=== PATIENT | male | born 1940 | race Caucasian/White ===

== ENCOUNTER 2020-08-18 07:34 | Day surgery (SDC) | payer MEDICARE ==
[2020-08-15 11:04] VITALS: BMI 27.4
[2020-08-18 08:24] VITALS: BP 129/93; TEMP 97.9
--- NOTE | 2020-08-18 10:18 | CT ---
Exam: Head CT without contrast HISTORY: Gait disturbance. Patient is here for long-term volume tap. COMPARISON: 05/06/2014 FINDINGS: Hemorrhage: No intraparenchymal hemorrhage or extra-axial hematoma. Brain parenchyma: Cortical dozier-white matter differentiation is preserved. No mass effect or midline shift. Basilar cisterns are patent.Minimal chronic small vessel ischemic changes of white matter Ventricular system: Ventricles and sulci are patent and symmetric. Calvarium: Intact. Sinuses and mastoid air cells: Adequate aeration. IMPRESSION: No acute intracranial process.
--- NOTE | 2020-08-18 10:19 | RAD ---
Exam: Lumbar puncture HISTORY: High volume tap. Acquired cerebral ventriculomegaly. Abnormal gait. FINDINGS: Three views lumbar spine demonstrate 5 lumbar type vertebra. Moderate degenerative changes of the lum bar spine with loss of disc space height, osteophyte formation. Atherosclerosis of the aorta. Hypertrophic changes of posterior elements at L4-L5 and L5-S1. Successful large volume tap. A total of 32 mL of clear CSF was removed. No immediate or postprocedure complications. TECHNIQUE: Consent obtained to perform a lumbar puncture for large volume tap. The L3-L4 level was deemed approp riate. Skin was prepped and draped in a sterile fashion. 1% lidocaine, buffered with sodium bicarbonate was used for local anesthesia. Under fluoroscopic guidance, 22-gauge spinal needles advan dean into the CSF space. Prompt flow of clear CSF to the hub of the needle. Via a short tubing catheter, total of 32 mL of clear CSF was collected. Patient tolerated the procedure well. No immedia te or postprocedure complications. IMPRESSION: Successful lumbar puncture. Transcribed Date/Time: 08/18/2020 10:24 AM
== END 2020-08-18 11:00 | disposition home or self-care (01) ==
LOC: RAD 07:34
PROVIDERS: ATTEND Neurological Surgery
PROC: 00JU3ZZ Inspection of Spinal Canal, Percutaneous Approach (ICD-10-PCS; principal; 2020-08-18)
DX: G91.9 Hydrocephalus, unspecified (principal); I70.0 Atherosclerosis of aorta; I10 Essential (primary) hypertension; K58.9 Irritable bowel syndrome, unspecified
CPT/HCPCS: 62270; 70450

== ENCOUNTER 2020-09-19 07:04 | Outpatient (CLI) | payer MEDICARE ==
[2020-09-19 17:31] LABS: Hemoglobin 13.8 g/dL (14.0-18.0); Mean Corpuscular HGB CONC 33.2 G/DL (32.0-36.0); Mean Corpuscular Hemoglobin 29.4 PG (27.0-33.0); Mean Corpuscular Volume 88.5 fl (80.0-100.0); Mean Platelet Volume 9.8 fl (7.4-10.4); Platelet Count 122 10x3/uL (130-400); RBC Distribution Width 11.9 % (11.5-14.5); White Blood Cell (WBC) Count 8.4 10x3/uL (4.5-11.0)
[2020-09-19 17:53] LABS: Anion Gap 16 mmol/L (10-20); BUN (Urea Nitrogen) 19 mg/dL (8.4-25.7); Calc. Creatinine Clearance 0 mL/min (70-130); Carbon Dioxide 27 mmol/L (23-31); Chloride 97 mmol/L (98-107); Glucose 69 mg/dL (83-110); Potassium 4.2 mmol/L (3.5-5.1); Sodium 136 mmol/L (136-145)
[2020-09-20 03:27] LABS: SARS-CoV-2 MS2 Positive; SARS-CoV-2 N Gene Negative; SARS-CoV-2 S Gene Negative; SARS-CoV-2 by NAA Not Detected (NotDetected); SARS-CoV-2 orf1ab Negative
--- NOTE | 2020-09-22 16:11 | EKG ---
Test Reason : PREOP Blood Pressure : / mmHG Vent. Rate : 078 BPM Atrial Rate : 078 BPM P-R Int : 144 ms QRS Dur : 090 ms QT Int : 376 ms P-R-T Axes : 050 057 065 degrees QTc Int : 428 ms Sinus rhythm with marked sinus arrhythmia with occasional Premature ventricular complexes and PAC's Abnormal No previous ECGs available Confirmed by DR. Enoch DANIELSON ([id number]) on 09/22/2020 4:11:40 PM Referred By: ARCELIA Confirmed By:DR. Enoch DANIELSON
== END 2020-09-19 07:05 | disposition home or self-care (01) ==
LOC: LABBT 07:04
PROVIDERS: ATTEND Neurological Surgery
DX: Z01.818 Encounter for other preprocedural examination (principal); Z20.828 Contact with and (suspected) exposure to other viral communicable diseases; G91.2 (Idiopathic) normal pressure hydrocephalus
CPT/HCPCS: 80048; 85027; U0003; 87635; 93005; 93010

== ENCOUNTER 2020-09-19 13:30 | Inpatient (IN) | payer MEDICARE ==
[2020-09-24] MEDS ORDERED: Lidocaine 0.5%/Epinephrine 1:200,000 50 ml Vial ONE (08:31)
[2020-09-24] MEDS ORDERED: PHENYLEPHRINE-NS 100 MCG/ML 10 ML SYRINGE ONE (08:43)
[2020-09-24] MEDS ORDERED: Rocuronium Bromide 10 MG/ML (10ML VIAL) ONE (08:43)
[2020-09-24] MEDS ORDERED: Dexamethasone 20 MG/5 ML VIAL ONE (08:43)
[2020-09-24] MEDS ORDERED: Ondansetron PF 4 MG/2 ML Vial ONE (08:43)
[2020-09-24] MEDS ORDERED: Lidocaine 1% PF 5 ML VIAL ONE (08:43)
[2020-09-24] MEDS ORDERED: PROPOFOL 200 MG/20 ML VIAL ONE (08:43)
--- NOTE | 2020-09-24 08:47 | HP ---
HISTORY OF PRESENT ILLNESS: Mr. Rivero was referred to us for evaluation of possible normal-pressure hydrocephalus. Most of the history provided by ex- on the phone. She reports he developed a shuffling sort of gait over the last several months, and at this point, has a great deal of difficulty ambulating. He reportedly has good strength on examination according to the primary care physician, though walking is a difficult task. He does have urinary incontinence troubles as well. MRI performed at [facility] reveals diffuse ventriculomegaly and perhaps some indication of surrounding transependymal flow. High-volume lumbar puncture resulted in short-lived, but clinically significant functional improvement and hopes to discuss permanent shunt placement. PAST MEDICAL HISTORY: Significant for glaucoma, arthritis, prostate cancer, hypertension. PAST SURGICAL HISTORY: Rotator cuff repair, unspecified laterality; and hemorrhoidectomy. CURRENT MEDICATIONS: 1. Lisinopril. 2. Hydrochlorothiazide. 3. Lovastatin. 4. Tamsulosin. 5. Vitamin D. ALLERGIES: NO KNOWN DRUG ALLERGIES. PHYSICAL EXAMINATION: Exam is deferred for telehealth visit. ASSESSMENT: Normal-pressure hydrocephalus. PLAN: Dr. Balderas met with the patient, reviewed imaging, and advocated for ENVIRONMENTAL PROJECT MANAGER shunt placement. He explained to the patient risks, benefits, and alternatives to the procedure. The patient expressed understanding and elected to move forward with surgery as discussed. I do believe the patient is mentally competent and capable of making medical decisions for himself. We will move forward with surgery as planned. Job ID: [id number]
[2020-09-24] MEDS ORDERED: Fentanyl 100 MCG/2 ML VIAL ONE (08:53)
[2020-09-24] MEDS ORDERED: Morphine Sulfate 2 MG/ML SYRINGE SLOW IVP PRN (09:45)
[2020-09-24] MEDS ORDERED: HYDROmorphone 2 MG/ML VIAL SLOW IVP PRN (09:45)
[2020-09-24] MEDS ORDERED: Promethazine HCl 25 MG/ML VIAL SLOW IVP PRN (09:45)
[2020-09-24] MEDS ORDERED: Promethazine HCl 25 MG/ML VIAL IM PRN (09:45)
[2020-09-24] MEDS ORDERED: PACU-Morphine 4MG/ML VIAL SLOW IVP PRN (09:45)
[2020-09-24] MEDS ORDERED: Ondansetron HCl/PF 4 MG/2 ML Vial IVP PRN (09:45)
[2020-09-24] MEDS ORDERED: SUGAMMADEX SODIUM 200 MG/2 ML VIAL ONE (09:47)
[2020-09-24] MEDS ORDERED: Morphine 2 MG/ML VIAL SLOW IVP PRN (10:05)
[2020-09-24] MEDS ORDERED: Labetalol HCl 100 MG/20 ML VIAL SLOW IVP PRN (10:05)
[2020-09-24] MEDS ORDERED: hydrALAZINE 20 MG/ML VIAL SLOW IVP PRN (10:05)
[2020-09-24] MEDS ORDERED: diphenhydrAMINE 50 MG/ML VIAL IVP PRN (10:05)
[2020-09-24] MEDS ORDERED: Ondansetron PF 4 MG/2 ML Vial IVP PRN (10:05)
--- NOTE | 2020-09-24 10:42 | OP ---
DATE OF PROCEDURE: 09/24/2020 TOP STITCHER: Adama Gan PA-C INDICATION: Prevent neurologic decline. DIAGNOSIS: Normal-pressure hydrocephalus. PROCEDURE: Placement of ventriculoperitoneal shunt. ANESTHESIA: General. DESCRIPTION OF PROCEDURE: The patient was brought into the operating room and placed under general anesthesia. He was placed on table in supine position. Two incisions were planned, one linear incision just beneath the xiphoid process. A second was a curvilinear incision along the occiput on the right side. After prepping and draping both areas, both incisions were created. A shunt passer trocar was used to pass the peritoneal shunt tubing from the occipital incision into the subxiphoid incision. A amaury hole was then placed within the occiput. A 6-cm ventricular catheter was carefully placed with immediate egress of clear spinal fluid. It was connected to the shunt valve peritoneal assembly. It was secured using multiple suture. We then redirected our attention to the subxiphoid incision, where as able to gain access to the peritoneal space and the peritoneal portion of the catheter was placed within the peritoneal space. Both incisions were closed in anatomic layers, and the procedure came to an end without any known complication. Job ID: [id number]
[2020-09-24 13:13] VITALS: BMI 26.2
[2020-09-24] MEDS ORDERED: Mirtazapine 15 MG TAB PO SCH (21:00)
[2020-09-24] MEDS ORDERED: Atorvastatin Calcium 10 MG TAB PO SCH (21:00)
[2020-09-24] MEDS: CEFAZOLIN 2 GM in Premix Bag 1 BAG IVPB SCH (21:03)
[2020-09-24] MEDS: Famotidine/PF 20 mg/2ml Vial SLOW IVP SCH (21:03)
[2020-09-25] MEDS: Sodium Chloride 0.9% 1,000 ML IV SCH ×2 (01:00→05:53)
[2020-09-25] MEDS: CEFAZOLIN 2 GM in Premix Bag 1 BAG IVPB SCH ×2 (05:47→09:12)
[2020-09-25] MEDS ORDERED: Ergocalciferol 1.25 MG(50,000 UNITS) CAP PO SCH (09:00)
[2020-09-25] MEDS ORDERED: Hydrochlorothiazide 25 MG TAB PO SCH (09:00)
[2020-09-25] MEDS ORDERED: Lisinopril 20 MG TAB PO SCH (09:00)
[2020-09-25] MEDS ORDERED: Tamsulosin HCl 0.4 MG CAP PO SCH (09:00)
[2020-09-25] MEDS: Famotidine/PF 20 mg/2ml Vial SLOW IVP SCH (09:12)
[2020-09-25 09:58] VITALS: TEMP 98.4
[2020-09-25 10:19] VITALS: BP 149/75
--- NOTE | 2020-09-26 12:22 | DIS ---
DATE OF ADMISSION: 09/24/2020 DATE OF DISCHARGE: 09/25/2020 Mr. Rivero is an 80-year-old man, admitted to [facility] by Dr. Ryan Balderas on September 24, 2020 ADMISSION DIAGNOSIS: Status post VARNISH BLENDER shunt placement. DISCHARGE DIAGNOSIS: Status post VARNISH BLENDER shunt placement. HOSPITAL COURSE: His hospital course was uncomplicated. Consultations were ordered to Physical Therapy. He overall tolerated one night in the ICU quite well with no significant pain issues. He was ultimately discharged home in excellent condition with 2 week followup planned in the outpatient setting. Job ID: [id number]
== END 2020-09-25 13:05 | disposition home or self-care (01) | DRG 33 ==
LOC: SURG A 09-24 07:37 → CCU 09-24 12:54
PROVIDERS: ADMIT Neurological Surgery; ATTEND Neurological Surgery
PROC: 00163J6 Bypass Cerebral Ventricle to Peritoneal Cavity with Synthetic Substitute, Percutaneous Approach (ICD-10-PCS; principal; 2020-09-24)
DX: G91.2 (Idiopathic) normal pressure hydrocephalus (principal); M19.90 Unspecified osteoarthritis, unspecified site; R26.9 Unspecified abnormalities of gait and mobility; I10 Essential (primary) hypertension; Z85.46 Personal history of malignant neoplasm of prostate; Z79.899 Other long term (current) drug therapy
CPT/HCPCS: J0690; J1100; J2001; J2405; J2704; J3010; J3490; S0028

== ENCOUNTER 2021-05-27 10:22 | Outpatient (CLI) | payer MEDICARE | END 2021-05-27 10:23 | disposition home or self-care (01) | LOC: BICMAMMO 10:22 | PROVIDERS: ATTEND Family Medicine | DX: Z13.820 Encounter for screening for osteoporosis (principal); M85.851 Other specified disorders of bone density and structure, right thigh; M85.852 Other specified disorders of bone density and structure, left thigh; Z12.5 Encounter for screening for malignant neoplasm of prostate | CPT/HCPCS: 77080; 80061; 82306; G0103; 36415; 80053; 84443; 85025 ==

== ENCOUNTER 2022-02-09 16:47 | Inpatient (IN) | payer MEDICARE ==
[2022-02-09 18:13] LABS: #Lymphocytes 0.7 thou/uL (1.20-3.40); #Monocytes 0.8 thou/uL (0.11-0.59); #Neutrophils 10.2 thou/uL (1.40-6.50); %Basophils 0.4 % (0.0-1.0); %Eosinophils 0.1 % (0.0-10.0); %Lymphocytes 5.6 % (21.0-51.0); %Monocytes 6.7 % (0.0-10.0); %Neutrophils 87.1 % (42.0-75.0); Hemoglobin 13.3 g/dL (14.0-18.0); Mean Corpuscular HGB CONC 34.9 g/dL (32.0-36.0); Mean Corpuscular Hemoglobin 31.5 pg (27.0-31.0); Mean Corpuscular Volume 90.3 fL (78.0-98.0); Mean Platelet Volume 9.1 fL (7.4-10.4); Platelet Count 77 thou/uL (130-400); RBC Distribution Width 12.8 % (11.5-14.5); Red Blood Cell (RBC) Count 4.23 mill/uL (4.70-6.10); White Blood Cell (WBC) Count 11.8 thou/uL (4.8-10.8)
[2022-02-09 18:14] LABS: Bacteria/HPF 3+ HPF (None Seen); Bilirubin Negative (Negative); Blood, Urine 3+ (Negative); Clarity Turbid (Clear); Glucose, Urine (Dipstick) Normal (Negative); Ketone, Urine 20 mg/dL (Negative); Leukocyte Negative Leu/uL (Negative); Nitrite Negative (Negative); Protein, Urine (Dipstick) 70 mg/dL (Neg-Trace); RBC/HPF 0-3 HPF (0-3); Specific Gravity, Urine 1.015 (1.002-1.036); Squamous Epithelial 0-3 HPF (0-3); Urobilinogen Normal mg/dL (Less than 2); pH, Urine 5.5 (5.0-9.0)
[2022-02-09 18:36] LABS: ALT (SGPT) Less than 7 U/L (8-55); AST (SGOT) 20 U/L (5-34); Albumin 4.2 g/dL (3.4-4.8); Alkaline Phosphatase 119 U/L (40-110); Anion Gap 29 mmol/L (10-20); BUN (Urea Nitrogen) 97 mg/dL (8.4-25.7); Bilirubin, Total 0.7 mg/dL (0.2-1.2); CK (CPK) 683 U/L (30-200); Calc. Creatinine Clearance 0 mL/min (70-130); Calcium 9.4 mg/dL (7.8-10.44); Carbon Dioxide 16 mmol/L (23-31); Chloride 102 mmol/L (98-107); Globulin 2.4 g/dL (2.4-3.5); Glucose 67 mg/dL (83-110); Potassium 4.1 mmol/L (3.5-5.1); Protein, Total 6.6 g/dL (5.8-8.1); Sodium 143 mmol/L (136-145)
[2022-02-09] MEDS ORDERED: cefTRIAXone\\ROCEPHIN 2 GM VIAL ONE (19:11)
[2022-02-09] MEDS ORDERED: hydrALAZINE 20 MG/ML VIAL SLOW IVP PRN (19:38)
[2022-02-09] MEDS ORDERED: Sodium Chloride 0.9% 500 ML IV SCH (19:45)
[2022-02-09] MEDS: Mirtazapine 15 MG TAB PO SCH (22:11)
[2022-02-09] MEDS: Sodium Chloride 0.9% 1,000 ML IV SCH (22:13)
[2022-02-09 22:54] VITALS: BMI 22.6
[2022-02-10] MEDS: Acetaminophen 500 MG TAB PO SCH ×5 (02:21→23:37)
[2022-02-10 04:10] LABS: Bacteria/HPF None Seen HPF (None Seen); Bilirubin Negative (Negative); Blood, Urine 2+ (Negative); Clarity Clear (Clear); Glucose, Urine (Dipstick) Normal (Negative); Ketone, Urine 40 mg/dL (Negative); Leukocyte Negative Leu/uL (Negative); Nitrite Negative (Negative); Protein, Urine (Dipstick) 50 mg/dL (Neg-Trace); RBC/HPF 0-3 HPF (0-3); Specific Gravity, Urine 1.013 (1.002-1.036); Squamous Epithelial 0-3 HPF (0-3); Urobilinogen Normal mg/dL (Less than 2); WBC/HPF 0-3 HPF (0-3); pH, Urine 5.5 (5.0-9.0)
[2022-02-10 04:11] LABS: Urine Culture Reflex No No
[2022-02-10] MEDS: Sodium Chloride 0.9% 1,000 ML IV SCH ×2 (06:09→12:30)
[2022-02-10 06:21] LABS: #Lymphocytes 0.5 thou/uL (1.20-3.40); #Monocytes 0.5 thou/uL (0.11-0.59); #Neutrophils 7.5 thou/uL (1.40-6.50); %Eosinophils 0.1 % (0.0-10.0); %Lymphocytes 6.1 % (21.0-51.0); %Monocytes 5.7 % (0.0-10.0); Hemoglobin 11.6 g/dL (14.0-18.0); Mean Corpuscular HGB CONC 34.1 g/dL (32.0-36.0); Mean Corpuscular Hemoglobin 31.1 pg (27.0-31.0); Mean Corpuscular Volume 91.5 fL (78.0-98.0); Mean Platelet Volume 7.7 fL (7.4-10.4); Platelet Count 55 thou/uL (130-400); RBC Distribution Width 12.3 % (11.5-14.5); Red Blood Cell (RBC) Count 3.74 mill/uL (4.70-6.10); White Blood Cell (WBC) Count 8.5 thou/uL (4.8-10.8)
[2022-02-10 06:25] LABS: INR-International Normal Ratio 1.2; PTT 32.4 sec (22.9-36.1); Prothrombin Time 15.6 sec (12.0-14.7)
[2022-02-10 06:35] LABS: Anion Gap 24 mmol/L (10-20); BUN (Urea Nitrogen) 82 mg/dL (8.4-25.7); CK (CPK) 784 U/L (30-200); Calc. Creatinine Clearance 12 mL/min (70-130); Calcium 8.4 mg/dL (7.8-10.44); Carbon Dioxide 15 mmol/L (23-31); Chloride 109 mmol/L (98-107); Magnesium 2.4 mg/dL (1.6-2.6); Phosphorus 5.4 mg/dL (2.3-4.7); Sodium 144 mmol/L (136-145)
[2022-02-10 06:39] LABS: Glucose 57 mg/dL (83-110)
[2022-02-10] MEDS: Tamsulosin HCl 0.4 MG CAP PO SCH (08:18)
[2022-02-10] MEDS ORDERED: Carbidopa/Levodopa 25-100 mg Tablet PO SCH (09:00)
[2022-02-10 09:39] LABS: SARS-CoV-2 NAA Rapid Test Not Detected (NotDetected)
[2022-02-10] MEDS: Amantadine HCl 100 mg Capsule PO SCH (10:05)
[2022-02-10] MEDS: Atorvastatin Calcium 10 MG TAB PO SCH (18:01)
[2022-02-10] MEDS ORDERED: Sodium Bicarbonate 150 MEQ in Dextrose 5% in Water 1,000 ML IV SCH (18:30)
[2022-02-10] MEDS ORDERED: cefTRIAXone\\ROCEPHIN 2 GM in Sodium Chloride 0.9% 100 ML IVPB SCH (20:00)
[2022-02-10] MEDS: Mirtazapine 15 MG TAB PO SCH (20:58)
[2022-02-10 22:09] LABS: Creatinine, Urine 46.68 mg/dL (63-166)
[2022-02-11] MEDS: Acetaminophen 500 MG TAB PO SCH ×4 (05:01→23:58)
[2022-02-11 06:37] LABS: Anion Gap 14 mmol/L (10-20); BUN (Urea Nitrogen) 60 mg/dL (8.4-25.7); CK (CPK) 458 U/L (30-200); Calc. Creatinine Clearance 16 mL/min (70-130); Calcium 8.2 mg/dL (7.8-10.44); Carbon Dioxide 24 mmol/L (23-31); Chloride 106 mmol/L (98-107); Glucose 132 mg/dL (83-110); Magnesium 1.9 mg/dL (1.6-2.6); Phosphorus 2.6 mg/dL (2.3-4.7); Sodium 141 mmol/L (136-145)
[2022-02-11] MEDS ORDERED: Magnesium 2 GM/50 ML(in water) 2 GM in Premix Bag 1 BAG IVPB SCH (07:30)
[2022-02-11] MEDS ORDERED: Potassium Chloride 20 MEQ TAB PO SCH (07:30)
[2022-02-11] MEDS ORDERED: Potassium Phosphate 30 MMOL in Sodium Chloride 0.9% 250 ML 250 ML IVPB SCH (07:30)
[2022-02-11] MEDS: Tamsulosin HCl 0.4 MG CAP PO SCH (08:02)
[2022-02-11] MEDS: Amantadine HCl 100 mg Capsule PO SCH (08:13)
[2022-02-11] MEDS: Sodium Chloride 0.9% 1,000 ML IV SCH (08:44)
[2022-02-11] MEDS ORDERED: Carbidopa/Levodopa 25-100 mg Tablet PO SCH (09:00)
[2022-02-11] MEDS ORDERED: Ergocalciferol 1.25 MG(50,000 UNITS) CAP PO SCH (09:00)
[2022-02-11] MEDS: Carbidopa/Levodopa 10-100 mg Tablet PO SCH (10:18)
[2022-02-11] MEDS: Atorvastatin Calcium 10 MG TAB PO SCH (17:44)
[2022-02-11] MEDS: Mirtazapine 15 MG TAB PO SCH (21:14)
[2022-02-11] MEDS ORDERED: Melatonin 3 MG TAB PO PRN (23:15)
[2022-02-12] MEDS: Sodium Chloride 0.9% 1,000 ML IV SCH ×2 (00:24→11:43)
[2022-02-12] MEDS: Acetaminophen 500 MG TAB PO SCH ×4 (05:16→17:17)
[2022-02-12] MEDS: Amantadine HCl 100 mg Capsule PO SCH ×2 (08:22→10:57)
[2022-02-12] MEDS: Tamsulosin HCl 0.4 MG CAP PO SCH ×2 (08:22→10:57)
[2022-02-12] MEDS: Carbidopa/Levodopa 10-100 mg Tablet PO SCH ×2 (08:22→10:57)
[2022-02-12 09:56] LABS: Anion Gap 12 mmol/L (10-20); BUN (Urea Nitrogen) 33 mg/dL (8.4-25.7); Calc. Creatinine Clearance 24 mL/min (70-130); Calcium 8.2 mg/dL (7.8-10.44); Carbon Dioxide 24 mmol/L (23-31); Chloride 108 mmol/L (98-107); Glucose 99 mg/dL (83-110); Magnesium 1.7 mg/dL (1.6-2.6); Potassium 3.7 mmol/L (3.5-5.1); Sodium 140 mmol/L (136-145)
[2022-02-12 16:24] LABS: Magnesium 1.5 mg/dL (1.6-2.6)
[2022-02-12] MEDS: Atorvastatin Calcium 10 MG TAB PO SCH (17:17)
[2022-02-12] MEDS: Mirtazapine 15 MG TAB PO SCH (20:05)
[2022-02-12] MEDS ORDERED: Magnesium 2 GM/50 ML(in water) 2 GM in Premix Bag 1 BAG IVPB SCH (22:15)
[2022-02-13] MEDS: Acetaminophen 500 MG TAB PO SCH ×5 (01:13→23:18)
[2022-02-13 05:12] LABS: #Eosinphils 0.1 thou/uL (0.0-0.7); #Lymphocytes 0.8 thou/uL (1.20-3.40); #Monocytes 0.3 thou/uL (0.11-0.59); #Neutrophils 5.2 thou/uL (1.40-6.50); %Basophils 0.3 % (0.0-1.0); %Eosinophils 0.9 % (0.0-10.0); %Lymphocytes 12.1 % (21.0-51.0); %Monocytes 5.1 % (0.0-10.0); %Neutrophils 81.5 % (42.0-75.0); Hemoglobin 11.2 g/dL (14.0-18.0); Mean Corpuscular HGB CONC 33.3 g/dL (32.0-36.0); Mean Corpuscular Hemoglobin 30.2 pg (27.0-31.0); Mean Corpuscular Volume 90.8 fL (78.0-98.0); Mean Platelet Volume 7.9 fL (7.4-10.4); Platelet Count 48 thou/uL (130-400); RBC Distribution Width 12.2 % (11.5-14.5); Red Blood Cell (RBC) Count 3.69 mill/uL (4.70-6.10); White Blood Cell (WBC) Count 6.4 thou/uL (4.8-10.8)
[2022-02-13 05:31] LABS: Anion Gap 13 mmol/L (10-20); BUN (Urea Nitrogen) 26 mg/dL (8.4-25.7); Calc. Creatinine Clearance 31 mL/min (70-130); Calcium 8.2 mg/dL (7.8-10.44); Carbon Dioxide 22 mmol/L (23-31); Chloride 107 mmol/L (98-107); Glucose 77 mg/dL (83-110); Magnesium 1.9 mg/dL (1.6-2.6); Phosphorus 2.5 mg/dL (2.3-4.7); Potassium 3.3 mmol/L (3.5-5.1); Sodium 139 mmol/L (136-145)
[2022-02-13] MEDS: Carbidopa/Levodopa 10-100 mg Tablet PO SCH (08:42)
[2022-02-13] MEDS: Tamsulosin HCl 0.4 MG CAP PO SCH (08:42)
[2022-02-13] MEDS: Amantadine HCl 100 mg Capsule PO SCH (08:42)
[2022-02-13] MEDS ORDERED: Potassium Chloride 20 MEQ TAB PO SCH (09:15)
[2022-02-13] MEDS: Atorvastatin Calcium 10 MG TAB PO SCH (17:52)
[2022-02-13] MEDS: Mirtazapine 15 MG TAB PO SCH (21:01)
[2022-02-14] MEDS: Acetaminophen 500 MG TAB PO SCH ×2 (04:46→12:25)
[2022-02-14] MEDS: Tamsulosin HCl 0.4 MG CAP PO SCH (09:22)
[2022-02-14] MEDS: Amantadine HCl 100 mg Capsule PO SCH (09:22)
[2022-02-14] MEDS: Carbidopa/Levodopa 10-100 mg Tablet PO SCH (09:23)
[2022-02-14 09:38] LABS: Anion Gap 15 mmol/L (10-20); BUN (Urea Nitrogen) 21 mg/dL (8.4-25.7); Calc. Creatinine Clearance 33 mL/min (70-130); Calcium 8.5 mg/dL (7.8-10.44); Carbon Dioxide 21 mmol/L (23-31); Chloride 106 mmol/L (98-107); Glucose 92 mg/dL (83-110); Potassium 3.6 mmol/L (3.5-5.1); Sodium 138 mmol/L (136-145)
[2022-02-14 13:09] VITALS: BP 117/70; TEMP 98.2
== END 2022-02-14 15:25 | DRG 85 ==
LOC: ERS 16:47 → NEURO 19:32 → SURG A 02-10 15:59
PROVIDERS: ADMIT Surgery; ATTEND Surgery
DX: S06.5X0A Traumatic subdural hemorrhage without loss of consciousness, initial encounter (principal); E43 Unspecified severe protein-calorie malnutrition; N17.9 Acute kidney failure, unspecified; N39.0 Urinary tract infection, site not specified; M62.82 Rhabdomyolysis; E87.2 Acidosis; Q61.3 Polycystic kidney, unspecified; N25.81 Secondary hyperparathyroidism of renal origin; G93.49 Other encephalopathy; F05 Delirium due to known physiological condition; Z20.822 Contact with and (suspected) exposure to COVID-19; W18.30XA Fall on same level, unspecified, initial encounter; G20 Parkinson's disease; F02.80 Dementia in other diseases classified elsewhere, unspecified severity, without behavioral disturbance, psychotic disturbance, mood disturbance, and anxiety; E86.0 Dehydration; H40.9 Unspecified glaucoma; M19.90 Unspecified osteoarthritis, unspecified site; R33.9 Retention of urine, unspecified; D63.1 Anemia in chronic kidney disease; I95.9 Hypotension, unspecified; I12.9 Hypertensive chronic kidney disease with stage 1 through stage 4 chronic kidney disease, or unspecified chronic kidney disease; N18.30 Chronic kidney disease, stage 3 unspecified; D69.6 Thrombocytopenia, unspecified; E56.9 Vitamin deficiency, unspecified; E87.6 Hypokalemia; Y92.002 Bathroom of unspecified non-institutional (private) residence as the place of occurrence of the external cause; Z85.46 Personal history of malignant neoplasm of prostate; Z92.3 Personal history of irradiation; Z90.49 Acquired absence of other specified parts of digestive tract; Z90.89 Acquired absence of other organs; Z79.899 Other long term (current) drug therapy; Z68.23 Body mass index [BMI] 23.0-23.9, adult
CPT/HCPCS: 36415; 36416; 51701; 70450; 71045; 72125; 72170; 76770; 80048; 80053; 81001; 81003; 81015; 82306; 82550; 82570; 83605; 83735; 83880; 83970; 84100; 84156; 84484; 85025; 85610; 85730; 86850; 86900; 86901; 87040; 87086; 93005; 96374; G0390; J0696; J3475; J7030; J7050; J7070; U0002

== ENCOUNTER 2022-05-12 03:58 | Inpatient (IN) | payer MEDICARE ==
[2022-05-12 04:38] LABS: #Lymphocytes 0.4 thou/uL (1.20-3.40); #Monocytes 0.3 thou/uL (0.11-0.59); #Neutrophils 7.3 thou/uL (1.40-6.50); %Eosinophils 0.2 % (0.0-10.0); %Lymphocytes 4.5 % (21.0-51.0); %Monocytes 3.8 % (0.0-10.0); %Neutrophils 91.5 % (42.0-75.0); Hemoglobin 7.3 g/dL (14.0-18.0); Mean Corpuscular HGB CONC 31.9 g/dL (32.0-36.0); Mean Corpuscular Volume 90.9 fL (78.0-98.0); Platelet Count 47 thou/uL (130-400); RBC Distribution Width 13.2 % (11.5-14.5); Red Blood Cell (RBC) Count 2.52 mill/uL (4.70-6.10); White Blood Cell (WBC) Count 7.9 thou/uL (4.8-10.8)
[2022-05-12 04:58] LABS: Burr Cells MARKED = >16 cells (100X) (0-1/hpf); Elliptocytes SLIGHT = 2-5 cells (100X) (0-1/hpf); MDiff Complete? YES; Platelet Morphology Comment Appears Decreased; Reflex for Review?? YES
[2022-05-12 05:00] LABS: ALT (SGPT) 8 U/L (8-55); AST (SGOT) 12 U/L (5-34); Albumin 1.1 g/dL (3.4-4.8); Alkaline Phosphatase 39 U/L (40-110); Anion Gap 9 mmol/L (10-20); BUN (Urea Nitrogen) 15 mg/dL (8.4-25.7); Bilirubin, Total 0.2 mg/dL (0.2-1.2); Calc. Creatinine Clearance 0 mL/min (70-130); Carbon Dioxide 10 mmol/L (23-31); Estimated GFR 97; Globulin 1.2 g/dL (2.4-3.5); Glucose 116 mg/dL (83-110); Protein, Total 2.3 g/dL (5.8-8.1); Sodium 144 mmol/L (136-145)
[2022-05-12] MEDS ORDERED: Digoxin 0.5 MG/2 ML AMP ONE (05:02)
[2022-05-12 05:07] LABS: Calcium 3.4 mg/dL (7.8-10.44); Chloride 127 mmol/L (98-107); Magnesium 0.9 mg/dL (1.6-2.6); Potassium 1.8 mmol/L (3.5-5.1)
[2022-05-12 06:10] LABS: ALT (SGPT) 22 U/L (8-55); AST (SGOT) 32 U/L (5-34); Albumin 2.9 g/dL (3.4-4.8); Alkaline Phosphatase 99 U/L (40-110); Anion Gap 15 mmol/L (10-20); BUN (Urea Nitrogen) 28 mg/dL (8.4-25.7); Bilirubin, Total 0.4 mg/dL (0.2-1.2); Calc. Creatinine Clearance 0 mL/min (70-130); Calcium 8.6 mg/dL (7.8-10.44); Carbon Dioxide 21 mmol/L (23-31); Chloride 107 mmol/L (98-107); Estimated GFR 44; Globulin 3.1 g/dL (2.4-3.5); Glucose 109 mg/dL (83-110); Magnesium 2.3 mg/dL (1.6-2.6); Potassium 4.4 mmol/L (3.5-5.1); Sodium 139 mmol/L (136-145)
[2022-05-12 06:27] LABS: SARS-CoV-2 NAA Rapid Test Not Detected (NotDetected)
[2022-05-12 07:46] LABS: Bilirubin Negative (Negative); Blood, Urine Trace (Negative); Glucose, Urine (Dipstick) Normal (Negative); Ketone, Urine Negative (Negative); Leukocyte Negative Leu/uL (Negative); Nitrite Negative (Negative); Protein, Urine (Dipstick) 70 mg/dL (Neg-Trace); RBC/HPF None Seen HPF (0-3); Specific Gravity, Urine 1.017 (1.002-1.036); Squamous Epithelial 0-3 HPF (0-3); Urobilinogen Normal mg/dL (Less than 2); WBC/HPF 0-3 HPF (0-3); pH, Urine 5.5 (5.0-9.0)
[2022-05-12 07:47] LABS: Clarity Hazy (Clear)
[2022-05-12 07:58] LABS: Transitional Epithelial 0-3 HPF (None Seen)
[2022-05-12 07:59] LABS: Bacteria/HPF Rare-Few HPF (None Seen)
[2022-05-12] MEDS ORDERED: Iopamidol-370 76% 500 ML 1 ML ONE (09:04)
[2022-05-12 09:05] LABS: Troponin I 0.013 ng/mL (< 0.028)
[2022-05-12] MEDS ORDERED: Digoxin 0.5 MG/2 ML AMP SLOW IVP SCH (13:07)
[2022-05-12] MEDS ORDERED: Ondansetron PF 4 MG/2 ML Vial IVP PRN (13:07)
[2022-05-12] MEDS ORDERED: Acetaminophen 500 MG TAB PO PRN (13:07)
[2022-05-12] MEDS ORDERED: Ondansetron ODT 4 MG TAB PO PRN (13:07)
[2022-05-12 13:11] VITALS: BMI 21.4
[2022-05-12 14:33] LABS: #Lymphocytes 1.1 thou/uL (1.20-3.40); #Monocytes 0.6 thou/uL (0.11-0.59); #Neutrophils 13.3 thou/uL (1.40-6.50); %Basophils 0.3 % (0.0-1.0); %Eosinophils 0.2 % (0.0-10.0); %Lymphocytes 7.3 % (21.0-51.0); %Monocytes 4.2 % (0.0-10.0); Hemoglobin 13.6 g/dL (14.0-18.0); Mean Corpuscular HGB CONC 31.8 g/dL (32.0-36.0); Mean Corpuscular Hemoglobin 28.5 pg (27.0-31.0); Mean Corpuscular Volume 89.8 fL (78.0-98.0); Platelet Count 101 thou/uL (130-400); RBC Distribution Width 13.7 % (11.5-14.5); Red Blood Cell (RBC) Count 4.77 mill/uL (4.70-6.10); White Blood Cell (WBC) Count 15.1 thou/uL (4.8-10.8)
[2022-05-12 14:45] LABS: Troponin I 0.041 ng/mL (< 0.028)
[2022-05-12] MEDS: Famotidine 20 MG TAB PO SCH (16:58)
[2022-05-12] MEDS: Mirtazapine 15 MG TAB PO SCH (20:10)
[2022-05-12] MEDS ORDERED: diphenhydrAMINE 50 MG CAP PO SCH (22:58)
[2022-05-13 04:34] LABS: #Lymphocytes 0.8 thou/uL (1.20-3.40); #Monocytes 0.6 thou/uL (0.11-0.59); #Neutrophils 11.7 thou/uL (1.40-6.50); %Basophils 0.1 % (0.0-1.0); %Eosinophils 0.3 % (0.0-10.0); %Lymphocytes 6.3 % (21.0-51.0); %Monocytes 4.2 % (0.0-10.0); %Neutrophils 89.1 % (42.0-75.0); Hemoglobin 13.2 g/dL (14.0-18.0); Mean Corpuscular Hemoglobin 28.5 pg (27.0-31.0); Mean Corpuscular Volume 89.1 fL (78.0-98.0); Mean Platelet Volume 7.8 fL (7.4-10.4); Platelet Count 85 thou/uL (130-400); RBC Distribution Width 13.6 % (11.5-14.5); Red Blood Cell (RBC) Count 4.61 mill/uL (4.70-6.10); White Blood Cell (WBC) Count 13.1 thou/uL (4.8-10.8)
[2022-05-13 05:07] LABS: ALT (SGPT) 24 U/L (8-55); AST (SGOT) 24 U/L (5-34); Albumin 2.9 g/dL (3.4-4.8); Alkaline Phosphatase 99 U/L (40-110); Anion Gap 14 mmol/L (10-20); BUN (Urea Nitrogen) 21 mg/dL (8.4-25.7); Bilirubin, Total 0.7 mg/dL (0.2-1.2); Calc. Creatinine Clearance 34 mL/min (70-130); Calcium 8.8 mg/dL (7.8-10.44); Carbon Dioxide 24 mmol/L (23-31); Chloride 105 mmol/L (98-107); Estimated GFR 52; Glucose 99 mg/dL (83-110); Potassium 3.6 mmol/L (3.5-5.1); Protein, Total 5.9 g/dL (5.8-8.1); Sodium 139 mmol/L (136-145)
[2022-05-13] MEDS: Amantadine HCl 100 mg Capsule PO SCH (09:46)
[2022-05-13] MEDS: Famotidine 20 MG TAB PO SCH (09:46)
[2022-05-13] MEDS: Carbidopa/Levodopa 25-100 mg Tablet PO SCH (09:46)
[2022-05-13] MEDS: Amiodarone 200 MG TAB PO SCH ×2 (15:30→21:42)
[2022-05-13] MEDS: Mirtazapine 15 MG TAB PO SCH (21:42)
[2022-05-13] MEDS: Melatonin 3 MG TAB PO PRN (21:42)
[2022-05-14 04:35] LABS: #Basophils 0.1 thou/uL (0.0-0.2); #Lymphocytes 0.8 thou/uL (1.20-3.40); #Monocytes 0.6 thou/uL (0.11-0.59); #Neutrophils 12.6 thou/uL (1.40-6.50); %Basophils 0.4 % (0.0-1.0); %Eosinophils 0.3 % (0.0-10.0); %Lymphocytes 5.6 % (21.0-51.0); %Neutrophils 89.8 % (42.0-75.0); Hemoglobin 13.1 g/dL (14.0-18.0); Mean Corpuscular HGB CONC 32.4 g/dL (32.0-36.0); Mean Corpuscular Hemoglobin 29.3 pg (27.0-31.0); Mean Corpuscular Volume 90.6 fL (78.0-98.0); Mean Platelet Volume 7.8 fL (7.4-10.4); Platelet Count 90 thou/uL (130-400); RBC Distribution Width 13.7 % (11.5-14.5); Red Blood Cell (RBC) Count 4.45 mill/uL (4.70-6.10)
[2022-05-14 04:36] LABS: Anion Gap 16 mmol/L (10-20); BUN (Urea Nitrogen) 19 mg/dL (8.4-25.7); Calc. Creatinine Clearance 40 mL/min (70-130); Calcium 8.8 mg/dL (7.8-10.44); Carbon Dioxide 22 mmol/L (23-31); Chloride 104 mmol/L (98-107); Estimated GFR 63; Glucose 101 mg/dL (83-110); Potassium 3.6 mmol/L (3.5-5.1); Sodium 138 mmol/L (136-145)
[2022-05-14] MEDS: Tamsulosin HCl 0.4 MG CAP PO SCH (08:57)
[2022-05-14] MEDS: Famotidine 20 MG TAB PO SCH (08:57)
[2022-05-14] MEDS: Amiodarone 200 MG TAB PO SCH ×3 (08:57→22:39)
[2022-05-14] MEDS: Amantadine HCl 100 mg Capsule PO SCH (08:57)
[2022-05-14] MEDS: Carbidopa/Levodopa 25-100 mg Tablet PO SCH (08:58)
[2022-05-14] MEDS: Rosuvastatin 20 MG TAB PO SCH (08:58)
[2022-05-14] MEDS ORDERED: Carbidopa/Levodopa 10-100 mg Tablet PO SCH (09:00)
[2022-05-14] MEDS ORDERED: Amantadine HCl 100 mg Capsule PO SCH (09:00)
[2022-05-14] MEDS ORDERED: Diltiazem 125 MG in Sodium Chloride 0.9% 100 ML IVPB SCH (09:15)
[2022-05-14] MEDS: Apixaban 2.5 MG TAB PO SCH ×2 (09:29→22:40)
[2022-05-14] MEDS ORDERED: Potassium Chloride 20 MEQ TAB PO SCH (12:00)
[2022-05-14] MEDS: Mirtazapine 15 MG TAB PO SCH (22:40)
[2022-05-14] MEDS: Melatonin 3 MG TAB PO PRN (22:40)
[2022-05-15 04:22] LABS: #Basophils 0.2 thou/uL (0.0-0.2); #Eosinphils 0.1 thou/uL (0.0-0.7); #Lymphocytes 1.1 thou/uL (1.20-3.40); #Monocytes 0.8 thou/uL (0.11-0.59); #Neutrophils 11.1 thou/uL (1.40-6.50); %Basophils 1.4 % (0.0-1.0); %Eosinophils 0.5 % (0.0-10.0); %Lymphocytes 8.4 % (21.0-51.0); %Monocytes 5.9 % (0.0-10.0); %Neutrophils 83.8 % (42.0-75.0); Hemoglobin 13.8 g/dL (14.0-18.0); Mean Corpuscular HGB CONC 30.2 g/dL (32.0-36.0); Mean Corpuscular Hemoglobin 28.4 pg (27.0-31.0); Mean Corpuscular Volume 94.3 fL (78.0-98.0); Mean Platelet Volume 9.1 fL (7.4-10.4); Platelet Count 100 thou/uL (130-400); Red Blood Cell (RBC) Count 4.85 mill/uL (4.70-6.10); White Blood Cell (WBC) Count 13.3 thou/uL (4.8-10.8)
[2022-05-15 04:34] LABS: Anion Gap 14 mmol/L (10-20); BUN (Urea Nitrogen) 18 mg/dL (8.4-25.7); Calc. Creatinine Clearance 41 mL/min (70-130); Calcium 8.7 mg/dL (7.8-10.44); Carbon Dioxide 21 mmol/L (23-31); Chloride 106 mmol/L (98-107); Estimated GFR 65; Glucose 119 mg/dL (83-110); Potassium 4.3 mmol/L (3.5-5.1); Sodium 137 mmol/L (136-145)
[2022-05-15] MEDS: Rosuvastatin 20 MG TAB PO SCH (08:53)
[2022-05-15] MEDS: Apixaban 2.5 MG TAB PO SCH ×2 (08:53→20:48)
[2022-05-15] MEDS: Amantadine HCl 100 mg Capsule PO SCH (08:53)
[2022-05-15] MEDS: Famotidine 20 MG TAB PO SCH (08:53)
[2022-05-15] MEDS: Tamsulosin HCl 0.4 MG CAP PO SCH (08:53)
[2022-05-15] MEDS: Amiodarone 200 MG TAB PO SCH ×3 (08:53→20:48)
[2022-05-15] MEDS: Carbidopa/Levodopa 25-100 mg Tablet PO SCH (08:54)
[2022-05-15] MEDS ORDERED: Docusate 100 MG CAP PO PRN (10:31)
[2022-05-15] MEDS ORDERED: Polyethylene Glycol 3350 17 GM Packet PO PRN (10:31)
[2022-05-15] MEDS: Mirtazapine 15 MG TAB PO SCH (20:49)
[2022-05-16] MEDS ORDERED: Diltiazem HCl 125 MG in Premix Bag 1 BAG IVPB SCH ×2 (07:15→10:52)
[2022-05-16] MEDS: Carbidopa/Levodopa 25-100 mg Tablet PO SCH (09:40)
[2022-05-16] MEDS: Rosuvastatin 20 MG TAB PO SCH (09:40)
[2022-05-16] MEDS: Tamsulosin HCl 0.4 MG CAP PO SCH (09:40)
[2022-05-16] MEDS: Amantadine HCl 100 mg Capsule PO SCH (09:40)
[2022-05-16] MEDS: Famotidine 20 MG TAB PO SCH (09:40)
[2022-05-16] MEDS: Apixaban 2.5 MG TAB PO SCH ×2 (09:40→21:34)
[2022-05-16] MEDS: Amiodarone 200 MG TAB PO SCH ×3 (09:40→21:33)
[2022-05-16] MEDS ORDERED: Diltiazem HCl SR 60 mg Capsule PO SCH ×2 (12:00→21:00)
[2022-05-16] MEDS: Mirtazapine 15 MG TAB PO SCH (21:34)
[2022-05-16] MEDS: Melatonin 3 MG TAB PO PRN (21:34)
[2022-05-17] MEDS: Amantadine HCl 100 mg Capsule PO SCH (10:40)
[2022-05-17] MEDS: Rosuvastatin 20 MG TAB PO SCH (10:40)
[2022-05-17] MEDS: Carbidopa/Levodopa 25-100 mg Tablet PO SCH (10:41)
[2022-05-17] MEDS: Apixaban 2.5 MG TAB PO SCH ×2 (10:41→21:10)
[2022-05-17] MEDS: Famotidine 20 MG TAB PO SCH (10:41)
[2022-05-17] MEDS: Amiodarone 200 MG TAB PO SCH ×3 (10:42→21:11)
[2022-05-17] MEDS: Tamsulosin HCl 0.4 MG CAP PO SCH (10:42)
[2022-05-17] MEDS: Mirtazapine 15 MG TAB PO SCH (21:10)
[2022-05-17] MEDS: Melatonin 3 MG TAB PO PRN (21:12)
[2022-05-18] MEDS: Amantadine HCl 100 mg Capsule PO SCH (09:26)
[2022-05-18] MEDS: Carbidopa/Levodopa 25-100 mg Tablet PO SCH (09:26)
[2022-05-18] MEDS: Amiodarone 200 MG TAB PO SCH ×3 (09:26→21:04)
[2022-05-18] MEDS: Rosuvastatin 20 MG TAB PO SCH (09:26)
[2022-05-18] MEDS: Tamsulosin HCl 0.4 MG CAP PO SCH (09:27)
[2022-05-18] MEDS: Famotidine 20 MG TAB PO SCH (09:27)
[2022-05-18] MEDS: Apixaban 2.5 MG TAB PO SCH ×2 (09:27→21:05)
[2022-05-18] MEDS: Mirtazapine 15 MG TAB PO SCH (21:04)
[2022-05-18] MEDS: Melatonin 3 MG TAB PO PRN (21:04)
[2022-05-19 06:59] LABS: Hemoglobin 12.8 g/dL (14.0-18.0); Mean Corpuscular HGB CONC 31.5 g/dL (32.0-36.0); Mean Corpuscular Hemoglobin 27.8 pg (27.0-31.0); Mean Corpuscular Volume 88.4 fL (78.0-98.0); Mean Platelet Volume 7.4 fL (7.4-10.4); Platelet Count 107 thou/uL (130-400); Red Blood Cell (RBC) Count 4.61 mill/uL (4.70-6.10); White Blood Cell (WBC) Count 10.7 thou/uL (4.8-10.8)
[2022-05-19 07:12] LABS: Anion Gap 10 mmol/L (10-20); BUN (Urea Nitrogen) 20 mg/dL (8.4-25.7); Calc. Creatinine Clearance 35 mL/min (70-130); Calcium 8.6 mg/dL (7.8-10.44); Carbon Dioxide 30 mmol/L (23-31); Chloride 105 mmol/L (98-107); Estimated GFR 54; Glucose 95 mg/dL (83-110); Potassium 3.4 mmol/L (3.5-5.1); Sodium 142 mmol/L (136-145)
[2022-05-19] MEDS ORDERED: Amiodarone 200 MG TAB PO SCH (09:00)
[2022-05-19] MEDS: Rosuvastatin 20 MG TAB PO SCH (09:33)
[2022-05-19] MEDS: Amantadine HCl 100 mg Capsule PO SCH (09:33)
[2022-05-19] MEDS: Tamsulosin HCl 0.4 MG CAP PO SCH (09:33)
[2022-05-19] MEDS: Apixaban 2.5 MG TAB PO SCH (09:34)
[2022-05-19] MEDS: Carbidopa/Levodopa 25-100 mg Tablet PO SCH (09:36)
[2022-05-19] MEDS: Famotidine 20 MG TAB PO SCH (09:36)
[2022-05-19 15:58] VITALS: BP 116/67; TEMP 97.7
== END 2022-05-19 18:30 | DRG 308 ==
LOC: ERS 03:58 → ERHOLD 07:55 → 2NO 15:09
PROVIDERS: ADMIT Internal Medicine; ATTEND Internal Medicine
DX: I48.0 Paroxysmal atrial fibrillation (principal); G93.41 Metabolic encephalopathy; I50.30 Unspecified diastolic (congestive) heart failure; N17.9 Acute kidney failure, unspecified; I13.0 Hypertensive heart and chronic kidney disease with heart failure and stage 1 through stage 4 chronic kidney disease, or unspecified chronic kidney disease; G20 Parkinson's disease; M19.90 Unspecified osteoarthritis, unspecified site; N18.30 Chronic kidney disease, stage 3 unspecified; D63.1 Anemia in chronic kidney disease; D69.6 Thrombocytopenia, unspecified; I95.1 Orthostatic hypotension; Z20.822 Contact with and (suspected) exposure to COVID-19; E88.09 Other disorders of plasma-protein metabolism, not elsewhere classified; I47.2 Ventricular tachycardia; Z90.49 Acquired absence of other specified parts of digestive tract; Z98.890 Other specified postprocedural states; Z91.81 History of falling
CPT/HCPCS: 36415; 36416; 70450; 71045; 71275; 80048; 80053; 81003; 81015; 82274; 83735; 83880; 84443; 84484; 85025; 85027; 85060; 93005; 93306; 96365; 96366; 96374; J1160; J3490; Q9967; U0002; U0003; U0005

== ENCOUNTER 2022-10-21 02:01 | Inpatient (IN) | payer MEDICARE, OTHER ==
[2022-10-21] MEDS ORDERED: Ondansetron ODT 4 MG TAB PO PRN (02:37)
[2022-10-21] MEDS ORDERED: Ipratropium/Albuterol 3 ML NEB NEB PRN ×2 (02:37→07:04)
[2022-10-21] MEDS ORDERED: TETANUS, DIPHTHERIA TOX,ADULT (TDVAX) 0.5 ML VIAL IM ONE (02:37)
[2022-10-21] MEDS ORDERED: Morphine 2 MG/ML VIAL SLOW IVP PRN (02:37)
[2022-10-21] MEDS ORDERED: Docusate 100 MG CAP PO PRN (02:42)
[2022-10-21] MEDS ORDERED: Acetaminophen 500 MG TAB ONE ×2 (03:57)
[2022-10-21] MEDS ORDERED: Boostrix 0.5 ML (Tdap) VIAL (>/=7 yrs of age) ONE (03:59)
[2022-10-21] MEDS: Acetaminophen 500 MG TAB PO SCH ×4 (04:24→17:56)
[2022-10-21] MEDS ORDERED: Non-Formulary Item 1 EACH (Ipratropium/Albuterol Sulfate [Combivent Respimat] 120 PUFF In INH PRN (06:41)
[2022-10-21 07:08] LABS: #Monocytes 0.5 thou/uL (0.11-0.59); #Neutrophils 4.9 thou/uL (1.40-6.50); %Basophils 0.3 % (0.0-1.0); %Eosinophils 0.6 % (0.0-10.0); %Lymphocytes 15.9 % (21.0-51.0); %Monocytes 8.2 % (0.0-10.0); Hemoglobin 11.7 g/dL (14.0-18.0); Mean Corpuscular HGB CONC 33.3 g/dL (32.0-36.0); Mean Corpuscular Volume 90.3 fl (78.0-98.0); Mean Platelet Volume 8.2 fL (7.4-10.4); Platelet Count 84 10x3/uL (130-400); RBC Distribution Width 15.3 % (11.5-14.5); Red Blood Cell (RBC) Count 3.89 mill/uL (4.70-6.10); White Blood Cell (WBC) Count 6.6 10x3/uL (4.8-10.8)
[2022-10-21 07:27] LABS: Anion Gap 10 mmol/L (10-20); BUN (Urea Nitrogen) 23 mg/dL (8.4-25.7); Calc. Creatinine Clearance 45 mL/min (70-130); Calcium 8.8 mg/dL (7.8-10.44); Carbon Dioxide 24 mmol/L (23-31); Chloride 107 mmol/L (98-107); Estimated GFR 78; Glucose 88 mg/dL (83-110); Potassium 4.3 mmol/L (3.5-5.1); Sodium 137 mmol/L (136-145)
[2022-10-21 07:55] LABS: Phosphorus 3.4 mg/dL (2.3-4.7)
[2022-10-21] MEDS ORDERED: Non-Formulary Item 1 EACH (Carbidopa/Levodopa [Carbidopa-Levo Er 25-100 Tab] 1 EACH Table PO SCH (09:00)
[2022-10-21] MEDS: Amantadine HCl 100 mg Capsule PO SCH (17:06)
[2022-10-21] MEDS: Famotidine 20 MG TAB PO SCH ×3 (17:06→20:45)
[2022-10-21] MEDS: Polyethylene Glycol 3350 17 GM Packet PO SCH (17:07)
[2022-10-21] MEDS: Rosuvastatin 20 MG TAB PO SCH (17:07)
[2022-10-21] MEDS: QUEtiapine 25 MG TAB PO SCH (17:07)
[2022-10-21] MEDS: Senokot S 8.6-50 MG TAB PO SCH ×2 (17:07→20:44)
[2022-10-21] MEDS: Tamsulosin HCl 0.4 MG CAP PO SCH (17:08)
[2022-10-21] MEDS: Mirtazapine 15 MG TAB PO SCH (20:45)
[2022-10-22] MEDS: Acetaminophen 500 MG TAB PO SCH ×5 (03:27→21:00)
[2022-10-22] MEDS ORDERED: Sodium Chloride 0.9% 1,000 ML IV SCH (08:00)
[2022-10-22] MEDS: Tamsulosin HCl 0.4 MG CAP PO SCH (09:51)
[2022-10-22] MEDS: Rosuvastatin 20 MG TAB PO SCH (09:51)
[2022-10-22] MEDS: Amantadine HCl 100 mg Capsule PO SCH (09:51)
[2022-10-22] MEDS: QUEtiapine 25 MG TAB PO SCH (09:51)
[2022-10-22] MEDS: Famotidine 20 MG TAB PO SCH ×3 (09:53→21:01)
[2022-10-22] MEDS: Polyethylene Glycol 3350 17 GM Packet PO SCH (09:53)
[2022-10-22] MEDS: Senokot S 8.6-50 MG TAB PO SCH ×2 (09:54→21:01)
[2022-10-22] MEDS: Mirtazapine 15 MG TAB PO SCH (21:00)
[2022-10-23] MEDS: Acetaminophen 500 MG TAB PO SCH ×4 (04:24→20:37)
[2022-10-23] MEDS ORDERED: Ketamine 50 MG/ML (10ML VIAL) ONE (07:32)
[2022-10-23] MEDS ORDERED: Fentanyl 250 MCG/5 ML VIAL ONE (07:32)
[2022-10-23] MEDS ORDERED: Phenylephrine 10 MG/ML VIAL ONE (07:32)
[2022-10-23] MEDS ORDERED: Sodium Chloride 0.9% 100 ML ONE (07:55)
[2022-10-23] MEDS ORDERED: CEFAZOLIN 2 GM VIAL ONE (07:55)
[2022-10-23] MEDS ORDERED: Tranexamic Acid 1,000 MG/10 ML VIAL ONE (07:56)
[2022-10-23] MEDS ORDERED: SUGAMMADEX SODIUM 200 MG/2 ML VIAL ONE ×2 (08:14→09:25)
[2022-10-23] MEDS ORDERED: PROPOFOL 200 MG/20 ML VIAL ONE (08:26)
[2022-10-23] MEDS ORDERED: Ketorolac Tromethamine 30 MG/ML VIAL ONE (08:26)
[2022-10-23] MEDS ORDERED: Dexamethasone 20 MG/5 ML VIAL ONE (08:26)
[2022-10-23] MEDS ORDERED: Rocuronium Bromide 10 MG/ML (10ML VIAL) ONE (08:26)
[2022-10-23] MEDS ORDERED: Ondansetron PF 4 MG/2 ML Vial ONE (08:26)
[2022-10-23] MEDS ORDERED: ePHEDrine 50 MG/ML VIAL ONE (08:26)
[2022-10-23] MEDS ORDERED: Promethazine HCl 25 MG/ML VIAL IVPB PRN (09:58)
[2022-10-23] MEDS ORDERED: HYDROmorphone 2 MG/ML VIAL SLOW IVP PRN (09:58)
[2022-10-23] MEDS ORDERED: Ondansetron HCl/PF 4 MG/2 ML Vial IVP PRN (09:58)
[2022-10-23] MEDS ORDERED: Promethazine HCl 25 MG/ML VIAL IM PRN (09:58)
[2022-10-23] MEDS ORDERED: Sodium Chloride 0.9% 1,000 ML IV SCH (10:00)
[2022-10-23] MEDS: CEFAZOLIN 2 GM in Sodium Chloride 0.9% 100 ML IVPB SCH (15:51)
[2022-10-23] MEDS: Tamsulosin HCl 0.4 MG CAP PO SCH (15:52)
[2022-10-23] MEDS: QUEtiapine 25 MG TAB PO SCH (15:52)
[2022-10-23] MEDS: Famotidine 20 MG TAB PO SCH ×3 (15:54→20:37)
[2022-10-23] MEDS: Rosuvastatin 20 MG TAB PO SCH (15:54)
[2022-10-23] MEDS: Senokot S 8.6-50 MG TAB PO SCH ×2 (15:54→20:37)
[2022-10-23] MEDS: Amantadine HCl 100 mg Capsule PO SCH ×2 (15:54→15:57)
[2022-10-23] MEDS: Polyethylene Glycol 3350 17 GM Packet PO SCH (15:55)
[2022-10-23] MEDS ORDERED: Hydrocortisone Sod Succ/PF 100 mg/2 ml Vial IVP SCH (20:00)
[2022-10-23] MEDS: Atorvastatin Calcium 40 MG TAB PO SCH (20:37)
[2022-10-23] MEDS: Mirtazapine 15 MG TAB PO SCH (20:38)
[2022-10-24] MEDS: CEFAZOLIN 2 GM in Sodium Chloride 0.9% 100 ML IVPB SCH (00:09)
[2022-10-24] MEDS: Acetaminophen 500 MG TAB PO SCH ×4 (03:43→19:54)
[2022-10-24] MEDS: Hydrocortisone Sod Succ/PF 100 mg/2 ml Vial IVP SCH ×3 (06:35→19:55)
[2022-10-24 07:06] LABS: #Lymphocytes 0.4 thou/uL (1.20-3.40); #Monocytes 0.5 thou/uL (0.11-0.59); #Neutrophils 8.3 thou/uL (1.40-6.50); %Lymphocytes 4.4 % (21.0-51.0); %Monocytes 5.1 % (0.0-10.0); %Neutrophils 90.5 % (42.0-75.0); Hemoglobin 11.9 g/dL (14.0-18.0); Mean Corpuscular HGB CONC 31.9 g/dL (32.0-36.0); Mean Corpuscular Hemoglobin 28.8 pg (27.0-31.0); Mean Corpuscular Volume 90.3 fl (78.0-98.0); Mean Platelet Volume 7.8 fL (7.4-10.4); Platelet Count 108 10x3/uL (130-400); Red Blood Cell (RBC) Count 4.13 mill/uL (4.70-6.10); White Blood Cell (WBC) Count 9.2 10x3/uL (4.8-10.8)
[2022-10-24 07:16] LABS: Anion Gap 12 mmol/L (10-20); BUN (Urea Nitrogen) 22 mg/dL (8.4-25.7); Calc. Creatinine Clearance 54 mL/min (70-130); Calcium 8.5 mg/dL (7.8-10.44); Carbon Dioxide 20 mmol/L (23-31); Chloride 107 mmol/L (98-107); Estimated GFR 88; Glucose 131 mg/dL (83-110); Magnesium 1.9 mg/dL (1.6-2.6); Phosphorus 3.5 mg/dL (2.3-4.7); Potassium 4.5 mmol/L (3.5-5.1); Sodium 134 mmol/L (136-145)
[2022-10-24] MEDS: Amiodarone 200 MG TAB PO SCH (09:22)
[2022-10-24] MEDS: Senokot S 8.6-50 MG TAB PO SCH ×2 (09:22→19:54)
[2022-10-24] MEDS: Polyethylene Glycol 3350 17 GM Packet PO SCH (09:22)
[2022-10-24] MEDS: Tamsulosin HCl 0.4 MG CAP PO SCH (09:22)
[2022-10-24] MEDS: Apixaban 2.5 MG TAB PO SCH ×2 (09:22→19:55)
[2022-10-24] MEDS: QUEtiapine 25 MG TAB PO SCH (09:22)
[2022-10-24] MEDS: Famotidine 20 MG TAB PO SCH ×2 (09:22→09:23)
[2022-10-24] MEDS: Amantadine HCl 100 mg Capsule PO SCH (09:22)
[2022-10-24] MEDS: Magnesium Oxide 400 MG TAB PO SCH (09:23)
[2022-10-24] MEDS: Atorvastatin Calcium 40 MG TAB PO SCH (19:55)
[2022-10-24] MEDS: Melatonin 3 MG TAB PO PRN (19:55)
[2022-10-24] MEDS: Mirtazapine 15 MG TAB PO SCH (19:55)
[2022-10-25] MEDS: Acetaminophen 500 MG TAB PO SCH ×4 (02:01→20:40)
[2022-10-25] MEDS: Hydrocortisone Sod Succ/PF 100 mg/2 ml Vial IVP SCH ×3 (05:16→20:34)
[2022-10-25] MEDS: Senokot S 8.6-50 MG TAB PO SCH ×2 (09:38→20:09)
[2022-10-25] MEDS: Polyethylene Glycol 3350 17 GM Packet PO SCH (09:38)
[2022-10-25] MEDS: Magnesium Oxide 400 MG TAB PO SCH (09:40)
[2022-10-25] MEDS: Amiodarone 200 MG TAB PO SCH (09:40)
[2022-10-25] MEDS: QUEtiapine 25 MG TAB PO SCH (09:40)
[2022-10-25] MEDS: Apixaban 2.5 MG TAB PO SCH ×2 (09:40→20:34)
[2022-10-25] MEDS: Tamsulosin HCl 0.4 MG CAP PO SCH (09:40)
[2022-10-25] MEDS: Famotidine 20 MG TAB PO SCH (09:40)
[2022-10-25] MEDS: Amantadine HCl 100 mg Capsule PO SCH (09:40)
[2022-10-25] MEDS: Atorvastatin Calcium 40 MG TAB PO SCH (20:09)
[2022-10-25] MEDS: Melatonin 3 MG TAB PO PRN (20:09)
[2022-10-25] MEDS: Mirtazapine 15 MG TAB PO SCH (20:09)
[2022-10-26] MEDS: Acetaminophen 500 MG TAB PO SCH (02:14)
[2022-10-26] MEDS: Hydrocortisone Sod Succ/PF 100 mg/2 ml Vial IVP SCH (05:24)
[2022-10-26 06:29] LABS: #Lymphocytes 0.9 thou/uL (1.20-3.40); #Monocytes 0.4 thou/uL (0.11-0.59); #Neutrophils 6.4 thou/uL (1.40-6.50); %Basophils 0.3 % (0.0-1.0); %Eosinophils 0.2 % (0.0-10.0); %Neutrophils 82.5 % (42.0-75.0); Hemoglobin 11.2 g/dL (14.0-18.0); Mean Corpuscular HGB CONC 31.2 g/dL (32.0-36.0); Mean Corpuscular Hemoglobin 28.5 pg (27.0-31.0); Mean Corpuscular Volume 91.1 fl (78.0-98.0); Mean Platelet Volume 7.9 fL (7.4-10.4); Platelet Count 104 10x3/uL (130-400); RBC Distribution Width 15.2 % (11.5-14.5); Red Blood Cell (RBC) Count 3.92 mill/uL (4.70-6.10); White Blood Cell (WBC) Count 7.7 10x3/uL (4.8-10.8)
[2022-10-26 06:46] LABS: Anion Gap 7 mmol/L (10-20); BUN (Urea Nitrogen) 28 mg/dL (8.4-25.7); Calc. Creatinine Clearance 59 mL/min (70-130); Calcium 8.7 mg/dL (7.8-10.44); Carbon Dioxide 29 mmol/L (23-31); Chloride 108 mmol/L (98-107); Estimated GFR 90; Glucose 88 mg/dL (83-110); Magnesium 2.1 mg/dL (1.6-2.6); Phosphorus 1.5 mg/dL (2.3-4.7); Potassium 3.3 mmol/L (3.5-5.1); Sodium 141 mmol/L (136-145)
[2022-10-26] MEDS ORDERED: Potassium Phosphate 30 MMOL in Sodium Chloride 0.9% 250 ML 250 ML IVPB SCH (08:30)
[2022-10-26] MEDS: Apixaban 2.5 MG TAB PO SCH ×2 (08:42→20:36)
[2022-10-26] MEDS: Famotidine 20 MG TAB PO SCH (08:42)
[2022-10-26] MEDS: QUEtiapine 25 MG TAB PO SCH (08:44)
[2022-10-26] MEDS: Amantadine HCl 100 mg Capsule PO SCH (08:44)
[2022-10-26] MEDS: Tamsulosin HCl 0.4 MG CAP PO SCH (08:44)
[2022-10-26] MEDS: Magnesium Oxide 400 MG TAB PO SCH (08:44)
[2022-10-26] MEDS: Senokot S 8.6-50 MG TAB PO SCH ×2 (08:44→20:36)
[2022-10-26] MEDS: Polyethylene Glycol 3350 17 GM Packet PO SCH (08:44)
[2022-10-26] MEDS: Amiodarone 200 MG TAB PO SCH (08:44)
[2022-10-26] MEDS ORDERED: Carbidopa/Levodopa 25-100 mg Tablet PO SCH (09:00)
[2022-10-26] MEDS: Acetaminophen/Codeine 30-300mg Tablet PO SCH (14:11)
[2022-10-26] MEDS: Acetaminophen 325 MG TAB PO SCH ×3 (14:16→20:35)
[2022-10-26] MEDS: Atorvastatin Calcium 40 MG TAB PO SCH (20:36)
[2022-10-26] MEDS: Melatonin 3 MG TAB PO PRN (20:36)
[2022-10-26] MEDS: Mirtazapine 15 MG TAB PO SCH (20:36)
[2022-10-27] MEDS: Acetaminophen/Codeine 30-300mg Tablet PO SCH ×2 (00:41→11:39)
[2022-10-27] MEDS: Acetaminophen 325 MG TAB PO SCH ×2 (03:37→11:39)
[2022-10-27 07:15] LABS: Anion Gap 10 mmol/L (10-20); BUN (Urea Nitrogen) 23 mg/dL (8.4-25.7); Calc. Creatinine Clearance 62 mL/min (70-130); Calcium 8.5 mg/dL (7.8-10.44); Carbon Dioxide 28 mmol/L (23-31); Chloride 106 mmol/L (98-107); Estimated GFR 92; Glucose 81 mg/dL (83-110); Magnesium 2.1 mg/dL (1.6-2.6); Phosphorus 2.5 mg/dL (2.3-4.7); Potassium 3.8 mmol/L (3.5-5.1); Sodium 140 mmol/L (136-145)
[2022-10-27] MEDS ORDERED: PHOS-NAK 1 PKT PACK PO SCH (07:45)
[2022-10-27] MEDS: Magnesium Oxide 400 MG TAB PO SCH (08:56)
[2022-10-27] MEDS: Amantadine HCl 100 mg Capsule PO SCH (08:56)
[2022-10-27] MEDS: QUEtiapine 25 MG TAB PO SCH (08:56)
[2022-10-27] MEDS: Amiodarone 200 MG TAB PO SCH (08:56)
[2022-10-27] MEDS: Apixaban 2.5 MG TAB PO SCH (08:56)
[2022-10-27] MEDS: Polyethylene Glycol 3350 17 GM Packet PO SCH (08:56)
[2022-10-27] MEDS: Tamsulosin HCl 0.4 MG CAP PO SCH (08:56)
[2022-10-27] MEDS: Senokot S 8.6-50 MG TAB PO SCH (08:57)
[2022-10-27] MEDS ORDERED: Famotidine 20 MG TAB PO SCH (09:00)
[2022-10-27 12:35] VITALS: BP 117/69; TEMP 97.8
== END 2022-10-27 14:19 | DRG 522 ==
LOC: ERS 02:01 → ERHOLD 02:41 → SJJU 10:54
PROVIDERS: ADMIT Specialist; ATTEND Surgery
PROC: 0SRS01A Replacement of Left Hip Joint, Femoral Surface with Metal Synthetic Substitute, Uncemented, Open Approach (ICD-10-PCS; principal; 2022-10-23)
PROC: 6A550Z2 Pheresis of Platelets, Single (ICD-10-PCS; 2022-10-23)
DX: S72.002A Fracture of unspecified part of neck of left femur, initial encounter for closed fracture (principal); N17.9 Acute kidney failure, unspecified; J90 Pleural effusion, not elsewhere classified; Z66 Do not resuscitate; E87.6 Hypokalemia; E83.39 Other disorders of phosphorus metabolism; G20 Parkinson's disease; F02.80 Dementia in other diseases classified elsewhere, unspecified severity, without behavioral disturbance, psychotic disturbance, mood disturbance, and anxiety; N18.9 Chronic kidney disease, unspecified; I12.9 Hypertensive chronic kidney disease with stage 1 through stage 4 chronic kidney disease, or unspecified chronic kidney disease; I48.91 Unspecified atrial fibrillation; E78.5 Hyperlipidemia, unspecified; Z85.46 Personal history of malignant neoplasm of prostate; Z90.89 Acquired absence of other organs; W18.30XA Fall on same level, unspecified, initial encounter; Y92.129 Unspecified place in nursing home as the place of occurrence of the external cause; Z90.49 Acquired absence of other specified parts of digestive tract
CPT/HCPCS: 36415; 36416; 36430; 70450; 71045; 72170; 80048; 82533; 83735; 84100; 85025; 86850; 86900; 86901; 90714; 90715; C1713; C1776; J1100; J1720; J1885; J2370; J2405; J2704; J3010; J3490; J7050; P9035